=== PATIENT | female | born 1970 | race Caucasian/White ===

== ENCOUNTER 2016-04-03 10:31 | Emergency (ER) | payer OTHER ==
[2016-04-03 10:37] VITALS: BMI 24.1
[2016-04-03] MEDS ORDERED: ONDANSETRON 4 MG/2 ML VIAL IVPUSH ONE (11:00)
[2016-04-03] MEDS ORDERED: FAMOTIDINE 20 MG/50 ML IVPB 50 ML IVPB ONE ×2 (11:00→11:06)
[2016-04-03] MEDS ORDERED: ONDANSETRON 4 MG/2 ML VIAL ONE (11:05)
--- NOTE | 2016-04-03 11:07 | PDOC ---
History of Present Illness - General Chief Complaint: Pain Stated Complaint: ABD PAIN Time Seen by Provider: 04/03/16 10:49 History Source: Patient Exam Limitations: No Limitations - History of Present Illness Travel History: No Initial Comments: 04/03/16 11:02 46 yr female with c/o abd pain started at 5am. Pt states pain is to mid abdomen radiates to lower right quadrant and to right thigh. Pt with nausea denies vomiting or diarrhea. Pt denies fever, chills no back pain , no sick contacts. history of csection x3 , right oophrectomy. Timing/Duration: reports: constant Quality: reports: moderate Abdominal Pain Onset Location: reports: epigastric Pain Radiation: reports: RUQ, RLQ Activities at Onset: reports: none Aggravating Factors: improves with: None Alleviating Factors: improves with: None Past History - Past Medical History Allergies/Adverse Reactions: Allergies Allergy/AdvReac Type Severity Reaction Status Date / Time No Known Allergies Allergy Verified 04/03/16 10:36 Home Medications: Ambulatory Orders Fluticasone/Vilanterol [Breo Ellipta 100-25 Mcg INH] 1 each IH PRN PRN 01/23/16 Famotidine 20 mg PO BID #14 tablet 04/03/16 Asthma: Yes Suicide Attempt (Hx): No - Surgical History Abdominal Surgery: Yes (right ovary with cyst removed.) Other Surgical History: 04/03/16 11:04 3 c sections - Immunization History Td Vaccination: Yes TDAP Vaccination: No Immunization Up to Date: Yes - Psycho/Social/Smoking Cessation Hx Anxiety: No Suicidal Ideation: No Smoking Status: No Smoking History: Never smoked Years of Tobacco Use: 0 Have you smoked in the past 12 months: No Number of Cigarettes Smoked Daily: 0 Cigars Per Day: 0 Information on smoking cessation initiated: No Hx Alcohol Use: No Drug/Substance Use Hx: No Substance Use Type: None Abd/GI Specific PMHX - Complaint Specific PMHX Colitis: No Diverticulitis: No GERD: No Hepatitis: No Irritable Bowel Synd (IBS): No Pancreatitis: No GI Ulcer Disease: No Review of Systems - Review of Systems Able to Perform ROS?: Yes Is the patient limited Portuguese proficient: No Constitutional: No: Symptoms Reported HEENTM: No: Symptoms Reported Respiratory: No: Symptoms reported Cardiac (ROS): No: Symptoms Reported ABD/GI: Yes: See HPI : No: Symptoms Reported, Burning, Dysuria, Discharge, Flank Pain, Hematuria, Pain *Physical Exam - Vital Signs Last Vital Signs Temp Pulse Resp BP Pulse Ox 98.8 F 76 20 122/85 97 04/03/16 10:34 04/03/16 10:34 04/03/16 10:34 04/03/16 10:34 04/03/16 10:34 - Physical Exam General Appearance: Yes: Nourished, Appropriately Dressed HEENT: positive: EOMI, NICK, Normal ENT Inspection, Normal Voice, TMs Normal, Pharynx Normal Neck: negative: Tender Respiratory/Chest: positive: Lungs Clear, Normal Breath Sounds Cardiovascular: positive: Regular Rhythm, Regular Rate Gastrointestinal/Abdominal: positive: Normal Bowel Sounds, Tender, Soft, Tenderness (epigastirc , RLQ ) Musculoskeletal: positive: Normal Inspection Extremity: positive: Normal Capillary Refill, Normal Inspection, Normal Range of Motion Integumentary: positive: Normal Color, Dry, Warm Neurologic: positive: Fully Oriented, Alert, Normal Mood/Affect, Normal Response , Motor Strength 5/5 ED Treatment Course - LABORATORY CBC & Chemistry Diagram: 04/03/16 11:00 04/03/16 11:05 Medical Decision Making - Medical Decision Making 04/03/16 11:05 cc: epigastric tenderness, right lower quadrant tenderness to right thigh denies urinary or bowel dysfunction, no vaginal discharge , irregular LMP will check labs, ct scan abdomen r/o 04/03/16 11:55 negative for will get Ct abd to r/o appendicitis 04/03/16 15:19 pt states her pain has resolved, CT reviewed is negative. I will dc pt home with follow up with her pmd in 1-2 days bland diet as tolerated pepcid . *DC/Admit/Observation/Transfer Diagnosis at time of Disposition: Abdominal pain Qualifiers: Abdominal location: generalized Qualified Code(s): R10.84 - Generalized abdominal pain - Discharge Dispostion Disposition: HOME Condition at time of disposition: Good - Prescriptions Prescriptions: Famotidine 20 mg PO BID #14 tablet - Patient Instructions Additional Instructions: bland diet the next 2 days as tolerated drink pleanty of water to avoid any constipation , high fiber diet follow with your primary care doctor in 1-2 days for a rep[eat exam take pepcid as directed you can take motrin as needed for pain if it does not effect your stomach otherwise take tylenol
[2016-04-03 11:12] LABS: PH,URINE 6.5 (5.0-8.0); URINE APPEARANCE CLEAR; URINE BILIRUBIN NEGATIVE (NEGATIVE); URINE COLOR LT. YELLOW; URINE GLUCOSE (UA) NEGATIVE (NEGATIVE); URINE KETONE NEGATIVE (NEGATIVE); URINE LEUK ESTERASE NEGATIVE (NEGATIVE); URINE NITRITE NEGATIVE (NEGATIVE); URINE PROTEIN NEGATIVE (NEGATIVE); URINE UROBILINOGEN 0.2 E.U/dl E.U./dl (0.2-1.0)
[2016-04-03 11:13] LABS: URINE BLOOD 2+ (NEGATIVE)
[2016-04-03 11:23] LABS: URINE MUCUS RARE; URINE RBC 6 /hpf (0-3)
[2016-04-03 11:27] LABS: BASOPHIL 0.9 % (0-2.0); EOSINOPHIL 2.5 % (0-4.5); MCH 31.7 pg (25.7-33.7); MEAN CELL VOLUME 93.4 fl (80-96); MEAN PLT VOLUME 8.4 fl (7.5-11.1); NEUTROPHILS 66.1 % (42.8-82.8); PLATELET COUNT 326 K/MM3 (134-434); RDW 13.8 % (11.6-15.6); WHITE BLOOD COUNT 9.9 K/mm3 (4.0-10.0)
[2016-04-03 11:49] LABS: ALBUMIN 4.2 g/dl (3.4-5.0); ANION GAP 6 (8-16); CALCIUM 9.4 mg/dL (8.5-10.1); CO2 25 mmol/L (21-32); CREATININE 0.6 mg/dL (0.55-1.02); GLUCOSE,RANDOM 91 mg/dL (74-106); SGOT/AST 18 U/L (15-37); SGPT/ALT 22 U/L (12-78)
[2016-04-03 11:50] LABS: ALK PHOS 129 U/L (45-117); BILIRUBIN,TOTAL 1.4 mg/dL (0.2-1.0); TOT PROT 7.5 g/dl (6.4-8.2)
[2016-04-03 15:37] VITALS: BP 138/92; PULSE 63; TEMP 97.4
== END 2016-04-03 15:37 | disposition home or self-care (01) ==
LOC: JER 10:31
PROC: 3E033GC Introduction of Other Therapeutic Substance into Peripheral Vein, Percutaneous Approach (ICD-10-PCS; principal; 2016-04-03)
DX: R10.84 Generalized abdominal pain (principal)
CPT/HCPCS: 36415; 74177-TC; 80053; 81003; 81015; 84703; 85025; 86850; 86900; 86901; 99284-25; Q9967

== ENCOUNTER → 2016-08-09 | Emergency (ER) | payer OTHER ==
[~2016-08-09] MED LIST: KETOROLAC TROMETHAMINE 30 MG/1 ML VIAL IVPUSH ONE; SODIUM CHLORIDE 1,000 ML IV STA
[2016-08-09 13:56] VITALS: BP 133/77; PULSE 92; TEMP 97.7; BMI 23.6
--- NOTE | 2016-08-09 17:16 | PDOC ---
History of Present Illness - General History Source: Patient Exam Limitations: No Limitations - History of Present Illness Initial Comments: CHIEF COMPLAINT: 46 y/o afebrile female with PMH asthma, migraines and kidney stones c/o right side and back pain today. HISTORY OF PRESENT ILLNESS: The patient describes the pain as intermittent and stabbing. She denies f/c, n/v/d, CP, SOB, abd pain, hematuria, dysuria, increase in urinary frequency. The patient has not taken anything for pain today. Vital signs on arrival are within normal limits. REVIEW OF SYSTEMS: GENERAL/CONSTITUTIONAL: No fever/chills. No weakness. No weight change. HEAD, EYES, EARS, NOSE AND THROAT: No change in vision. No ear pain or discharge. No sore throat. CARDIOVASCULAR: No chest pain or shortness of breath. RESPIRATORY: No cough, wheezing, or hemoptysis. GASTROINTESTINAL: +right side pain. No nausea, vomiting, diarrhea. GENITOURINARY: No dysuria, frequency, or change in urination. MUSCULOSKELETAL: No joint or muscle swelling or pain. No neck pain. +right back pain. SKIN: No rash or easy bruising. NEUROLOGIC: No headache, vertigo, loss of consciousness, or loss of sensation. PHYSICAL EXAM: GENERAL: The patient is awake, alert, and fully oriented, in obvious discomfort , holding her right flank. HEAD: Normal with no signs of trauma. ENT: Pupils equal, round and reactive to light, extraocular movements intact, sclera anicteric, conjunctiva clear. Neck supple. LUNGS: Clear to auscultation bilaterally. Normal excursion. No respiratory distress or use of accessory muscles. CV: RRR, S1/S2, no MRG. Cap refill < 2 sec. ABDOMEN: Soft, non-distended, non-tender even to deep palpation, no hepatomegaly or splenomegaly, no masses. No suprapubic TTP. No rebound, guarding or rigidity. BACK: Right CVA tenderness to palpation and right flank pain with palpation. EXTREMITIES: Normal range of motion, no edema. NEUROLOGICAL: Normal speech, normal gait. CN II-XII grossly intact. PSYCH: Normal mood, normal affect. SKIN: Warm, dry, normal turgor, no rashes or lesions noted. <Rebecca Blanc - Last Filed: 08/09/16 18:44> <Campos,Denny - Last Filed: 08/09/16 19:55> - General Chief Complaint: Pain, Acute Stated Complaint: SIDE PAIN Time Seen by Provider: 08/09/16 16:44 Past History - Past Medical History Asthma: Yes Kidney Stones: Yes Suicide Attempt (Hx): No - Surgical History Abdominal Surgery: Yes (right ovary with cyst removed.) - Immunization History Td Vaccination: Yes TDAP Vaccination: No Immunization Up to Date: Yes - Psycho/Social/Smoking Cessation Hx Anxiety: No Suicidal Ideation: No Smoking Status: No Smoking History: Never smoked Years of Tobacco Use: 0 Have you smoked in the past 12 months: No Number of Cigarettes Smoked Daily: 0 Cigars Per Day: 0 Information on smoking cessation initiated: No Hx Alcohol Use: No Drug/Substance Use Hx: No Substance Use Type: None <Rebecca Blanc - Last Filed: 08/09/16 18:44> <Denny Gasca - Last Filed: 08/09/16 19:55> - Past Medical History Allergies/Adverse Reactions: Allergies Allergy/AdvReac Type Severity Reaction Status Date / Time No Known Allergies Allergy Verified 08/09/16 13:56 Home Medications: Ambulatory Orders Fluticasone/Vilanterol [Breo Ellipta 100-25 Mcg INH] 1 each IH PRN PRN 01/23/16 Famotidine 20 mg PO BID #14 tablet 04/03/16 Abd/GI Specific PMHX - Complaint Specific PMHX Colitis: No Diverticulitis: No GERD: No Hepatitis: No Irritable Bowel Synd (IBS): No Pancreatitis: No GI Ulcer Disease: No <Rebecca Blanc - Last Filed: 08/09/16 18:44> *Physical Exam - Vital Signs Last Vital Signs Temp Pulse Resp BP Pulse Ox 97.7 F 92 H 20 133/77 100 08/09/16 13:53 08/09/16 13:53 08/09/16 13:53 08/09/16 13:53 08/09/16 13:53 <Rebecca Blanc - Last Filed: 08/09/16 18:44> - Vital Signs Last Vital Signs Temp Pulse Resp BP Pulse Ox 97.7 F 92 H 20 133/77 100 08/09/16 13:53 08/09/16 13:53 08/09/16 13:53 08/09/16 13:53 08/09/16 13:53 <Denny Gasca - Last Filed: 08/09/16 19:55> ED Treatment Course - ADDITIONAL ORDERS Additional order review: Laboratory Results 08/09/16 16:53 Urine Color Straw Urine Appearance Clear Urine pH 7.0 Urine Protein Negative Urine Glucose (UA) Negative Urine Ketones Negative Urine Blood 2+ H Urine Nitrite Negative Urine Bilirubin Negative Urine Urobilinogen Negative Ur Leukocyte Esterase Trace H Urine RBC 2 Urine WBC 1 Ur Epithelial Cells Rare Urine HCG, Qual Negative - Medications Given in the ED: ED Medications Discontinued Medications Generic Name Dose Route Start Last Admin Trade Name Freq PRN Reason Stop Dose Admin Sodium Chloride 1,000 mls @ 1,000 mls/hr 08/09/16 17:19 08/09/16 18:08 Normal Saline - IV 08/09/16 18:18 1,000 mls/hr ASDIR STA Administration <Denny Gasca - Last Filed: 08/09/16 19:55> Medical Decision Making - Medical Decision Making A/P: 46 y/o female with possible right sided kidney stone/renal colic. Plan is as follows: 1. Labs 2. UA/culture/hcg 3. IV fluids 4. IV toradol The patient was found to have eloped from the ER after providing a urine sample. <Rebecca Blanc - Last Filed: 08/09/16 18:44> - Medical Decision Making 08/09/16 19:55 The patient was seen and evaluated in conjunction with IGNACIA Blanc under my direct supervision, ancillary studies were reviewed. I agree with the plan as outlined by IGNACIA Blanc . <Denny Gasca - Last Filed: 08/09/16 19:55> *DC/Admit/Observation/Transfer <Rebecca Blanc - Last Filed: 08/09/16 18:44> <Denny Gasca - Last Filed: 08/09/16 19:55> Diagnosis at time of Disposition: Flank pain - Discharge Dispostion Disposition: ELOPED Condition at time of disposition: Stable - Referrals Referrals: Julisa Disla MD [Staff Physician] -
[2016-08-09 17:54] LABS: URINE APPEARANCE CLEAR; URINE BILIRUBIN NEGATIVE (NEGATIVE); URINE COLOR STRAW; URINE GLUCOSE (UA) NEGATIVE (NEGATIVE); URINE KETONE NEGATIVE (NEGATIVE); URINE NITRITE NEGATIVE (NEGATIVE); URINE PROTEIN NEGATIVE (NEGATIVE); URINE UROBILINOGEN NEGATIVE E.U./dl (0.2-1.0)
[2016-08-09 17:55] LABS: URINE BLOOD 2+ (NEGATIVE); URINE LEUK ESTERASE TRACE (NEGATIVE)
[2016-08-09 18:12] LABS: URINE RBC 2 /hpf (0-3); URINE WBC 1 /hpf (3-5)
== END | disposition left against medical advice (07) ==
LOC: JER 13:51
PROC: 3E0337Z Introduction of Electrolytic and Water Balance Substance into Peripheral Vein, Percutaneous Approach (ICD-10-PCS; principal; 2016-08-09)
DX: R10.31 Right lower quadrant pain (principal)
CPT/HCPCS: 81003; 81015; 84703; 87086; 99283-25

== ENCOUNTER 2017-04-24 17:20 | Emergency (ER) | payer OTHER ==
--- NOTE | 2017-04-24 17:23 | PDOC ---
Rapid Medical Evaluation Time Seen by Provider: 04/24/17 17:21 Medical Evaluation: Allergies Allergy/AdvReac Type Severity Reaction Status Date / Time No Known Allergies Allergy Verified 08/09/16 13:56 04/24/17 17:21 47 year old female with history of asthma presenting with sudden onset of left arm pain, tingling, and weakness about 5 minutes prior to arrival. 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
[2017-04-24 17:28] VITALS: TEMP 97.8; BMI 22.4
[2017-04-24] MEDS ORDERED: SODIUM CHLORIDE 1,000 ML IV SCH (17:30)
--- NOTE | 2017-04-24 18:03 | PDOC ---
History of Present Illness - General Chief Complaint: CVA/TIA Stated Complaint: NUMBNESS Time Seen by Provider: 04/24/17 17:21 History Source: Patient Exam Limitations: No Limitations - History of Present Illness Initial Comments: Ms Salinas is a 47yo F with PMHx of Migraine w/ aura who presents w/ sudden onset L facial and body paresthesias. She was having pizza with her , and at 5: 20PM felt an electric shock running down her L face, L arm and L leg. Her entire left side is currently very painful. She has some weakness, but states its due to pain. No facial droop, no R sided symptoms. No cardiac risk factors. In retrospect, she states that she gets these paresthesias intermittently, they usually self resolve and are usually followed by a migraine. They often happen at night in her L leg. She treats her migraines w/ excedrin as needed. Past History - Past Medical History Allergies/Adverse Reactions: Allergies Allergy/AdvReac Type Severity Reaction Status Date / Time No Known Allergies Allergy Verified 04/24/17 17:22 Home Medications: Ambulatory Orders Fluticasone/Vilanterol [Breo Ellipta 100-25 Mcg INH] 1 each IH PRN PRN 01/23/16 Famotidine 20 mg PO BID #14 tablet 04/03/16 Asthma: Yes COPD: No Kidney Stones: Yes Other medical history: h.pylorie - Surgical History Abdominal Surgery: Yes (right ovary with cyst removed.) - Immunization History Td Vaccination: Yes TDAP Vaccination: No Immunization Up to Date: Yes - Suicide/Smoking/Psychosocial Hx Smoking Status: No Smoking History: Never smoked Years of Tobacco Use: 0 Have you smoked in the past 12 months: No Number of Cigarettes Smoked Daily: 0 Cigars Per Day: 0 Information on smoking cessation initiated: No Hx Alcohol Use: No Drug/Substance Use Hx: No Substance Use Type: None *Physical Exam - Vital Signs Last Vital Signs Temp Pulse Resp BP Pulse Ox 97.8 F 79 18 155/109 100 04/24/17 17:23 04/24/17 17:23 04/24/17 17:23 04/24/17 17:23 04/24/17 17:23 - Physical Exam Comments: GEN: AAOx3, NAD, Lying comfortably HEENT: PERRLA, EOMi CV: S1, S2, RRR LUNG: CTABL ABD: Soft, NT, ND, normoactive BS MSK: No edema, no erythema NEURO: Decreased sensation in face, L arm and L leg. 4/5 muscle strength in face, L arm, and L leg due to pain No right sided symptoms NIH Stroke Scale - Last Known Well Date/Time & Onset Date Last Known Well: 04/24/17 Time Last Known Well: 17:20 - Initial Evaluation Level of consciousness: Alert Ask patient the month and their age: Answers both correctly Ask patient to open & close eyes; make fist and let go: Obeys both correctly Best gaze (horizontal eye movement): Normal Visual field testing: No visual field loss Facial paresis (Show teeth/raise eyebrows/close eyes tight): Normal symmetrical movement Motor Function: Left Arm: Drift Motor Function: Right Arm: Normal (extends arm 90 (or 45) degrees for 10 seconds without drift Motor Function: Left Leg: Drift Motor Function: Right Leg: Normal (extends leg 30 degrees for 5 seconds without drift) Limb Ataxia: No ataxia Sensory(Use pinprick test arms,legs,trunk,face/side to side): Mild to moderate decrease in sensation Best language (Describe picture, name items, read sentences): No Aphasia Dysarthria (read several words): Normal articulation Extinction and Inattention: No abnormality - Total Score NIH Stroke Scale Score: 3 Critical Care Time/MDM Note - Medical Decision Making Note: 47yo F with PMHx of migraines who presents w/ L facial, L arm, and L leg paresthesias of sudden onset. She normally gets these symptoms before migraines. On re-examination, the paresthesias have been decreasing. -- Code Crouch Called -- Stroke protocol started Discussed case w/ neurologist habilitative interventionist Dr Kim who states that these symptoms are more likely an aura to her migraine, and not likely due to a stroke. Head CT negative, cervical spine CT negative. On re-examination 15 minutes later, the paresthesias have subsided, and patient is no longer weak on the L side. Because of symptom recovery and unlikely stroke, not candidate for tPA. Will treat with supportive measures. WIll follow labs. If labs are normal, will likely discharge w/ followup w/ Dr Kim Discharge Disposition - Diagnosis Migraine with aura Qualifiers: Status migrainosus presence: without status migrainosus Intractability: not intractable Qualified Code(s): G43.109 - Migraine with aura, not intractable, without status migrainosus - Referrals Referrals: Norris Kim MD [Staff Physician] - 1 week Julisa Disla MD [Primary Care Provider] - 1 week - Patient Instructions Printed Discharge Instructions: DI for Migraine - Post Discharge Activity
[2017-04-24] MEDS ORDERED: METOCLOPRAMIDE HCL INJECTION 10 MG/2 ML VIAL IVPUSH ONE (18:08)
[2017-04-24 18:32] LABS: BASO % 0.7 % (0-2.0); EOS % 3.2 % (0-4.5); HEMATOCRIT 40.9 % (32.4-45.2); HEMOGLOBIN 13.5 GM/dL (10.7-15.3); LYMPH % 38.9 % (8-40); MCH 30.8 pg (25.7-33.7); MCHC 33.1 g/dl (32.0-36.0); MEAN CELL VOLUME 93.1 fl (80-96); MEAN PLT VOLUME 8.6 fl (7.5-11.1); MONO % 5.5 % (3.8-10.2); NEUT % 51.7 % (42.8-82.8); PLATELET COUNT 311 K/MM3 (134-434); RBC 4.39 M/mm3 (3.60-5.2); RDW 12.9 % (11.6-15.6); WHITE BLOOD COUNT 10.6 K/mm3 (4.0-10.0)
[2017-04-24 18:51] VITALS: BP 137/98
[2017-04-24] MEDS ORDERED: METOCLOPRAMIDE HCL INJECTION 10 MG/2 ML VIAL ONE (19:00)
[2017-04-24 19:01] LABS: INR 1.03 (0.82-1.09); PROTHROMBIN TIME (PATIENT) 11.6 SEC (9.98-11.88)
[2017-04-24 19:08] LABS: ALBUMIN 4.3 g/dl (3.4-5.0); ANION GAP 9 (8-16); BILIRUBIN,TOTAL 1.1 mg/dL (0.2-1.0); BLOOD UREA NITROGEN 15 mg/dL (7-18); CALCIUM 8.7 mg/dL (8.5-10.1); CHLORIDE 106 mmol/L (98-107); CHOLESTEROL 192 mg/dL (50-200); CO2 24 mmol/L (21-32); CREATININE 0.6 mg/dL (0.55-1.02); GLUCOSE,RANDOM 80 mg/dL (74-106); HDL CHOLESTEROL 73 mg/dL (40-60); LDL CHOLESTEROL (ONLY SJRH) 109 mg/dL (5-100); POTASSIUM 3.8 mmol/L (3.5-5.1); SGOT/AST 19 U/L (15-37); SGPT/ALT 22 U/L (12-78); SODIUM 139 mmol/L (136-145); TOT PROT 7.7 g/dl (6.4-8.2); TRIGLYCERIDES 60 mg/dL (35-160)
--- NOTE | 2017-04-24 19:10 | PDOC ---
Attending Attestation - HPI HPI: 04/24/17 19:44 The patient is a 47 year old female with past medical history of migraine headaches w/ aura, who presents to the ED with complaints of left facial, left leg, and left arm paresthesias that began suddenly this afternoon. The patient states that at 5:20 pm, she was having pizza with her and felt an electricity like sharp pain that ran down her face to her left arm and left leg. The patient reports pain currently in the ED, as well as weakness to her left upper and lower extremities which she attributes to pain. The patient reports experiencing similar symptoms in the past, attributing them to the start of her migraines. She denies any right sided paresthesias, no chest pain, palpitations, or diaphoresis. She denies any fever or chills. Documentation prepared by Merlyn Mooney, acting as medical billing service for Tangela Ramirez DO. - Physicial Exam PE: 04/24/17 19:47 GENERAL: Awake, alert, and fully oriented, in no acute distress HEAD: No signs of trauma EYES: PERRLA, EOMI, sclera anicteric, conjunctiva clear ENT: Auricles normal inspection, hearing grossly normal, nares patent, oropharynx clear without exudates. Moist mucosa NECK: Normal ROM, supple, no lymphadenopathy, JVD, or masses LUNGS: Breath sounds equal, clear to auscultation bilaterally. No wheezes, and no crackles HEART: Regular rate and rhythm, normal S1 and S2, no murmurs, rubs or gallops ABDOMEN: Soft, nontender, normoactive bowel sounds. No guarding, no rebound. No masses EXTREMITIES: Normal range of motion, no edema. No clubbing or cyanosis. No cords, erythema, or tenderness NEUROLOGICAL: Decreased sensation to left face, and left upper and lower extremities. Cranial nerves II through XII grossly intact. Normal speech, normal gait. Strength is 5/5 in upper and lower left extremities. SKIN: Warm, Dry, normal turgor, no rashes or lesions noted. <Merlyn Mooney - Last Filed: 04/24/17 19:47> - Resident Resident Name: Maite Ventura - ED Attending Attestation I have performed the following: I have examined & evaluated the patient, The case was reviewed & discussed with the resident, I agree w/resident's findings & plan, Exceptions are as noted - Medical Decision Making 04/24/17 19:10 I, Dr. Tangela Ramirez, DO, attest that this document has been prepared under my direction and personally reviewed by me in its entirety. I further attest, that it accurately reflects all work, treatment, procedures and medical decision -making performed by me. 04/24/17 19:51 a/p: 47yo female with acute onset of tingling to L face, arm, leg hx of migraines, no headache currently had mild weakness to L arm and L leg describes pain as burning sensation to arms and legs onset was 510p tonight currently weakness resolving tingling improving 04/24/17 19:[address] Kim - suspect aura prior to migraine will medicate on re-eval patient states at night before getting her migraines she develops tingling to arm and leg that is similar 04/24/17 20:32 re-eval: rapid resolution of symptoms not a candidate for TPA also not consistent with CVA symptoms 04/24/17 20:33 pt states feeling much better 04/24/17 21:28 pt without symptoms - stable for d/c to home follow with Dr. Kim for further eval of migraine ramos <Tangela Ramirez - Last Filed: 04/24/17 21:29>
[2017-04-24 19:11] LABS: ALK PHOS 113 U/L (45-117)
--- NOTE | 2017-04-24 19:18 | PDOC ---
*Physical Exam - Vital Signs Last Vital Signs Temp Pulse Resp BP Pulse Ox 97.8 F 77 16 137/98 96 04/24/17 17:23 04/24/17 18:51 04/24/17 18:51 04/24/17 18:51 04/24/17 18:51 - Physical Exam Comments: 04/24/17 19:19 GENERAL: Awake, alert, and fully oriented, in no acute distress HEAD: No signs of trauma, normocephalic, atraumatic EYES: PERRLA, EOMI, sclera anicteric, conjunctiva clear ENT: Hearing grossly normal, nares patent, oropharynx clear without exudates. Moist mucosa NECK: Normal ROM, no JVD, or masses LUNGS: No distress, speaks full sentences, clear to auscultation bilaterally HEART: Regular rate and rhythm, normal S1 and S2, no murmurs, rubs or gallops, peripheral pulses normal and equal bilaterally. EXTREMITIES : Normal inspection, Normal range of motion, no edema. No clubbing or cyanosis. NEUROLOGICAL: Cranial nerves II through XII grossly intact. Normal speech, normal gait, no focal sensorimotor deficits SKIN: Warm, Dry, normal turgor, no rashes or lesions noted. ED Treatment Course - LABORATORY CBC & Chemistry Diagram: 04/24/17 18:20 04/24/17 18:20 - ADDITIONAL ORDERS Additional order review: 04/24/17 18:20 RBC 4.39 MCV 93.1 MCHC 33.1 RDW 12.9 MPV 8.6 Neutrophils % 51.7 D Lymphocytes % 38.9 D Monocytes % 5.5 Eosinophils % 3.2 Basophils % 0.7 - Medications Given in the ED: ED Medications Discontinued Medications Generic Name Dose Route Start Last Admin Trade Name Freq PRN Reason Stop Dose Admin Diphenhydramine HCl 12.5 mg 04/24/17 18:08 04/24/17 19:01 Benadryl Injection - IVPUSH 04/24/17 18:09 12.5 mg ONCE ONE Administration Metoclopramide HCl 10 mg 04/24/17 18:08 04/24/17 19:02 Reglan Injection - IVPUSH 04/24/17 18:09 10 mg ONCE ONE Administration Medical Decision Making - Medical Decision Making 04/24/17 19:18 47yo F with h/o migraines who arrives EMS w/ acute onset L facial, L arm, and L leg paresthesias. These symptoms typically occur before pt. migraines. Patient hand off from Dr. Ventura.Pt. re-examined and the paresthesias have resolved. ED Course Noteable for thais shay, stroke protocol. Case discussed with neurologist lease administration supervisor Dr Kim who states that these symptoms are more likely 2/2 an aura to her migraine, and not CVA/TIA. Head CT negative, cervical spine CT negative. Labs are pending. ED Course: 04/24/17 19:22 CBC: Unremarkable 04/24/17 20:19 CMP:Unremarkable Patient stable at bedside. Discussed discharge w/ return precautions and symptoms being 2/2 migraine with aura. Advised to f/u with Neurology. *DC/Admit/Observation/Transfer Diagnosis at time of Disposition: Migraine with aura Qualifiers: Status migrainosus presence: without status migrainosus Intractability: not intractable Qualified Code(s): G43.109 - Migraine with aura, not intractable, without status migrainosus - Referrals Referrals: Julisa Disla MD [Primary Care Provider] - 1 week Norris Kim MD [Staff Physician] - 1 week - Patient Instructions Printed Discharge Instructions: DI for Migraine Additional Instructions: Please return to the emergency department with any new or worsening symptoms or concerns. Please follow up with Dr. Kim within the next 24-72 hours. - Post Discharge Activity - Attestations Physician Attestion: 04/24/17 20:21 I attest to the information provided in this note.
[2017-04-24 20:26] VITALS: PULSE 81
--- NOTE | 2017-04-25 10:06 | EKG ---
Test Reason : Blood Pressure : / mmHG Vent. Rate : 073 BPM Atrial Rate : 073 BPM P-R Int : 144 ms QRS Dur : 072 ms QT Int : 390 ms P-R-T Axes : 058 008 035 degrees QTc Int : 429 ms NORMAL SINUS RHYTHM SEPTAL INFARCT , AGE UNDETERMINED ABNORMAL ECG WHEN COMPARED WITH ECG OF 23-JAN-2016 08:52, NO SIGNIFICANT CHANGE WAS FOUND Confirmed by CICI MCKOY MD ([id number]) on 04/25/2017 10:05:56 AM Referred By: Confirmed By:CICI MCKOY MD
== END 2017-04-24 21:46 | disposition home or self-care (01) ==
LOC: JER 17:20
PROC: 3E0337Z Introduction of Electrolytic and Water Balance Substance into Peripheral Vein, Percutaneous Approach (ICD-10-PCS; principal; 2017-04-24)
PROC: 3E033GC Introduction of Other Therapeutic Substance into Peripheral Vein, Percutaneous Approach (ICD-10-PCS; 2017-04-24)
PROC: 3E033GC Introduction of Other Therapeutic Substance into Peripheral Vein, Percutaneous Approach (ICD-10-PCS; 2017-04-24)
DX: G43.109 Migraine with aura, not intractable, without status migrainosus (principal)
CPT/HCPCS: 36415; 70450-TC; 71045-TC; 72125-TC; 80053; 82465; 82550; 83718; 83721; 84478; 84484; 85025; 85610; 86850; 86900; 86901; 93005; 93010; 99285-25

== ENCOUNTER 2018-10-24 19:23 | Emergency (ER) | payer OTHER | END 2018-10-25 02:29 | disposition home or self-care (01) | LOC: JER 19:23 | PROC: 3E033GC Introduction of Other Therapeutic Substance into Peripheral Vein, Percutaneous Approach (ICD-10-PCS; principal; 2018-10-24) | PROC: 3E033NZ Introduction of Analgesics, Hypnotics, Sedatives into Peripheral Vein, Percutaneous Approach (ICD-10-PCS; 2018-10-24) | DX: R10.13 Epigastric pain (principal) ==

== ENCOUNTER 2022-06-23 03:33 | Emergency (ER) | payer OTHER ==
[2022-06-23 03:49] VITALS: BMI 22.3
[2022-06-23] MEDS ORDERED: SODIUM CHLORIDE 0.9% 500 ML INFUS.BAG IV ONE (04:03)
[2022-06-23] MEDS ORDERED: METOCLOPRAMIDE HCL INJECTION 10 MG/2 ML VIAL IVPB ONE (04:03)
[2022-06-23] MEDS ORDERED: METOCLOPRAMIDE HCL INJECTION 10 MG/2 ML VIAL ONE (04:13)
[2022-06-23 04:28] LABS: BASO % 0.9 % (0-2.0); HEMATOCRIT 38.6 % (32.4-45.2); HEMOGLOBIN 13.3 GM/dL (10.7-15.3); LYMPH % 37.5 % (8-40); MCH 32.1 pg (25.7-33.7); MCHC 34.5 g/dl (32.0-36.0); MEAN PLT VOLUME 8.1 fl (7.5-11.1); MONO % 8.1 % (3.8-10.2); NEUT % 50.5 % (42.8-82.8); PLATELET COUNT 340 10^3/uL (134-434); RBC 4.15 M/mm3 (3.60-5.2); RDW 12.7 % (11.6-15.6); WHITE BLOOD COUNT 7.5 K/mm3 (4.0-10.0)
[2022-06-23 04:33] LABS: INR 1.07 (0.83-1.09); PROTHROMBIN TIME (PATIENT) 12.4 SEC (9.7-13.0)
[2022-06-23 04:36] LABS: ACTIVATED PTT 33.6 SECONDS (25.2-36.5)
[2022-06-23 04:48] LABS: CALCIUM 9.7 mg/dL (8.5-10.1)
[2022-06-23 04:49] LABS: BLOOD UREA NITROGEN 17.4 mg/dL (7-18)
[2022-06-23 04:52] LABS: CREATININE 0.7 mg/dL (0.55-1.3)
[2022-06-23 04:53] LABS: BILIRUBIN,TOTAL 1.2 mg/dL (0.2-1); TOT PROT 7.2 g/dl (6.4-8.2)
[2022-06-23 08:21] VITALS: BP 128/83; PULSE 78; RESP 16; TEMP 98
== END 2022-06-23 08:24 | disposition home or self-care (01) ==
LOC: JER 03:33
DX: R51.9 Headache, unspecified (principal); R07.89 Other chest pain; R06.02 Shortness of breath; R11.2 Nausea with vomiting, unspecified; R20.2 Paresthesia of skin; Z20.822 Contact with and (suspected) exposure to COVID-19
CPT/HCPCS: 0241U-QW; 36415; 70450-TC; 71046-TC-FY; 80053; 84484; 85025; 85610; 85730; 93005; 93010; 99285-25